=== PATIENT | female | born 1965 | race Caucasian/White ===

== ENCOUNTER 2017-02-23 12:23 | Emergency (ER) | payer MEDICARE, MEDICAID ==
[~2017-02-23] VITALS: Ht 165.1 cm; Wt 56.5 kg
[~2017-02-23 12:23] MED LIST: ATOR40TA71 PO; GABA-531 PO; MELO-273 PO; METH500T6 PO
[2017-02-23] MEDS ORDERED: ONDANSETRON HCL 4 MG TABLET PO ONE (13:45)
[2017-02-23] MEDS ORDERED: HYDROCODONE/ACETAMINOPHEN 5-325 MG TABLET PO ONE (13:45)
[2017-02-23 15:32] VITALS: BP 115/64
== END 2017-02-23 15:43 | disposition home or self-care (01) ==
LOC: EMS 12:33
DX: S50.01XA Contusion of right elbow, initial encounter (principal); S70.01XA Contusion of right hip, initial encounter; I10 Essential (primary) hypertension; F12.90 Cannabis use, unspecified, uncomplicated; W01.0XXA Fall on same level from slipping, tripping and stumbling without subsequent striking against object, initial encounter; Y93.01 Activity, walking, marching and hiking; Y92.69 Other specified industrial and construction area as the place of occurrence of the external cause; Y99.8 Other external cause status
CPT/HCPCS: 73080; 73502; 99284; Q0162

== ENCOUNTER 2018-03-04 10:30 | Emergency (ER) | payer MEDICARE, MEDICAID ==
[~2018-03-04] VITALS: Ht 157.5 cm; Wt 54.5 kg
[~2018-03-04 10:30] MED LIST changes: +MELO-106 PO; -MELO-273 PO
[2018-03-04] MEDS ORDERED: LIDOCAINE HCL 1% 20 ML VIAL INJ ONE (11:30)
[2018-03-04] MEDS ORDERED: ATOR10TA84 PO (11:35)
[2018-03-04 12:26] VITALS: BP 136/80
== END 2018-03-04 13:11 | disposition home or self-care (01) ==
LOC: EMS 10:31
DX: S01.81XA Laceration without foreign body of other part of head, initial encounter (principal); S50.311A Abrasion of right elbow, initial encounter; I10 Essential (primary) hypertension; F12.90 Cannabis use, unspecified, uncomplicated; W01.198A Fall on same level from slipping, tripping and stumbling with subsequent striking against other object, initial encounter; Y93.89 Activity, other specified; Y92.89 Other specified places as the place of occurrence of the external cause; Y99.8 Other external cause status
CPT/HCPCS: 12011; 70450; 73070; 99284; J3490

== ENCOUNTER 2021-03-21 13:12 | Emergency (ER) | payer MEDICARE, MEDICAID ==
[~2021-03-21] VITALS: Ht 157.5 cm; Wt 59.1 kg
[~2021-03-21 13:12] MED LIST changes: +ASCO500 PO; +ASPI-1450 PO; +ATOR10TA84 PO; +ATOR40TA28 PO; -ATOR40TA71 PO; +CHOL-35 PO; +DOCU100C34 PO; +DULO30CA89 PO; +GABA-1181 PO; +LORA10TA7 PO; +METF-960 PO; +METH-811 PO; -METH500T6 PO; +MONT-35 PO; +OXYB-34 PO; +RIVA15TA PO; +ZOFRAN PO
[2021-03-21] MEDS ORDERED: ONDANSETRON HCL 4 MG/2 ML VIAL IVP ONE (15:00)
[2021-03-21] MEDS ORDERED: SODIUM CHLORIDE 0.9% 1,000 ML IV ONE (15:00)
[2021-03-21 15:16] LABS: BASOPHILS % (AUTO) 0.4 % (0.0-2.0); EOSINOPHILS % (AUTO) 1.4 % (1.0-6.0); HEMATOCRIT 36.5 % (36-46); HEMOGLOBIN 11.9 g/dL (12.0-16.0); LYMPHOCYTES # (AUTO) 2.8 K/uL (1.0-4.8); LYMPHOCYTES % (AUTO) 40.7 % (22.0-44.0); MEAN CORPUSCULAR HEMOGLOBIN 28.6 pg (26.0-34.0); MEAN CORPUSCULAR HGB CONC 32.7 G/dL (31.0-37.0); MEAN CORPUSCULAR VOLUME 87 fL (80-100); MONOCYTES # (AUTO) 0.6 K/uL (0.1-1.0); MONOCYTES % (AUTO) 8.9 % (2.0-9.0); NEUTROPHILS # (AUTO) 3.3 K/uL (1.8-7.7); NEUTROPHILS % (AUTO) 48.6 % (40.0-70.0); PLATELET COUNT (AUTO) 374 K/uL (150-450); RED BLOOD CELL COUNT(AUTO) 4.18 MIL/uL (4.00-5.20); RED CELL DISTRIBUTION WIDTH 15.1 % (11.5-14.5)
[2021-03-21] MEDS ORDERED: FOLI0.8C PO (15:18)
[2021-03-21] MEDS ORDERED: FERR-82 PO (15:19)
[2021-03-21 15:32] LABS: ALANINE AMINOTRANSFERASE 67 U/L (12-78); ALBUMIN 3.9 g/dL (3.4-5.0); ALKALINE PHOSPHATASE 89 U/L (46-116); ANION GAP 8 mmol/L (8-16); ASPARTATE AMINOTRANSFERASE 56 U/L (15-37); BILIRUBIN,TOTAL 0.5 mg/dL (0.1-1.0); CALCIUM, TOTAL 8.8 mg/dL (8.8-10.5); CARBON DIOXIDE 27 mmol/L (22-29); CHLORIDE 101 mmol/L (98-107); CREATININE 0.76 mg/dL (0.60-1.30); GLOMERULAR FILTR. RATE CALC > 60 mL/min (>60); GLUCOSE,RANDOM 154 mg/dL (70-110); LIPASE 51 U/L (73-393); SODIUM SERUM 136 mmol/L (136-145); TOTAL PROTEIN, SERUM 7.4 g/dL (6.4-8.2); UREA NITROGEN, BLOOD 15 mg/dL (7-18)
[2021-03-21] MEDS ORDERED: LORazepam 2 MG/ML VIAL IVP ONE (15:45)
[2021-03-21] MEDS ORDERED: LevETIRAcetam 1,000 MG in DEXTROSE 5%-WATER 100 ML IV ONE (15:45)
[2021-03-21] MEDS ORDERED: POTASSIUM CHLORIDE 10% 40 MEQ/30 ML LIQUID UDCUP PO ONE (16:30)
[2021-03-21 18:00] VITALS: BP 127/73
== END 2021-03-21 18:30 | disposition home or self-care (01) ==
LOC: EMS 13:12
DX: S00.83XA Contusion of other part of head, initial encounter (principal); E87.6 Hypokalemia; R11.2 Nausea with vomiting, unspecified; M79.601 Pain in right arm; I10 Essential (primary) hypertension; F12.90 Cannabis use, unspecified, uncomplicated; Z79.84 Long term (current) use of oral hypoglycemic drugs; Z79.82 Long term (current) use of aspirin; W19.XXXA Unspecified fall, initial encounter; Y93.89 Activity, other specified; Y92.89 Other specified places as the place of occurrence of the external cause; Y99.8 Other external cause status
CPT/HCPCS: 36415; 70450; 80053; 83690; 84484; 85025; 93005; 96361; 96374; 96375; 99285; G0480; J0712; J2060; J2405; J7030; J7060

== ENCOUNTER 2022-08-30 16:51 | Emergency (ER) | payer MEDICARE, MEDICAID ==
[~2022-08-30] VITALS: Ht 160 cm; Wt 59.1 kg
[~2022-08-30 16:51] MED LIST changes: +ATOR10TA PO; -ATOR10TA84 PO; -CHOL-35 PO; +CHOL25TA4 PO; +DULO-114 PO; -DULO30CA89 PO; +FERR-82 PO; +FOLI0.8C PO; +METF-1211 PO; -METF-960 PO
[2022-08-30 16:58] VITALS: BP 100/62
[2022-08-30] MEDS ORDERED: LEVE500T8 PO (17:06)
[2022-08-30] MEDS ORDERED: ICOS0.5C PO (17:06)
[2022-08-30] MEDS ORDERED: OMEP20 PO (17:06)
== END 2022-08-30 21:55 | disposition home or self-care (01) ==
LOC: EMS 16:52
DX: S09.90XA Unspecified injury of head, initial encounter (principal); M54.2 Cervicalgia; I10 Essential (primary) hypertension; F12.90 Cannabis use, unspecified, uncomplicated; H54.40 Blindness, one eye, unspecified eye; X58.XXXA Exposure to other specified factors, initial encounter; Y93.89 Activity, other specified; Y92.89 Other specified places as the place of occurrence of the external cause; Y99.8 Other external cause status
CPT/HCPCS: 70450; 72125; 82962; 99284